=== PATIENT | male | born 1960 | race Caucasian/White ===

== ENCOUNTER → 2022-07-07 12:45 | Outpatient (CLI) | payer OTHER, SELFPAY ==
--- NOTE | 2022-07-07 12:50 | DI.RAD.S_ITS ---
PROCEDURE: XR CHEST 2V INDICATIONS: Cough TECHNIQUE: 2 views of the chest were acquired. COMPARISON: None. FINDINGS: Surgical changes and devices: None. Lungs and pleura: An incomplete inspiratory result is noted, causing a crowded appearance to the lung markings. No focal infiltrates are seen. No pneumothorax or significant pleural effusions are seen. Mediastinum: Mediastinal contours are normal. Heart size is normal. Bones and chest wall: No suspicious bony abnormalities. Soft tissues appear unremarkable. IMPRESSION: Low lung volumes, without jasmina, focal infiltrates. If there is clinical concern for a developing pulmonary process, a short-term followup chest series (with PA and lateral views, performed in deep inspiration) is suggested for further evaluation. Dictated by: Ray Flower M.D. on 07/07/2022 at 15:26 Approved by: Ray Flower M.D. on 07/07/2022 at 15:27
== END ==
PROVIDERS: Referring Provider Nurse Practitioner Family; Visit Provider Nurse Practitioner Family
DX: R05.9 Cough, unspecified (principal)
CPT/HCPCS: 71046